=== PATIENT | female | born 1965 | race Caucasian/White ===

== ENCOUNTER 2024-04-10 08:08 | Day surgery (SDC) | payer MEDICAID, OTHER ==
[~2024-04-10] VITALS: Ht 154.9 cm; Wt 95.3 kg
[2024-04-10] MEDS ORDERED: MEPERIDINE 100 MG INJ. 100 MG/ML VIAL ONE (08:17)
[2024-04-10] MEDS ORDERED: MIDAZOLAM HCL 5 MG/5 ML VIAL ONE (08:19)
[2024-04-10 13:01] VITALS: O2SAT 99
[2024-04-10 17:40] VITALS: BP_SYST 113; PULSE 69; RESP 18
== END 2024-04-10 11:40 | disposition home or self-care (01) ==
LOC: SDS 08:08 → SMU 08:11 → SDS 11:40
PROVIDERS: ATTEND Student in an Organized Health Care Education/Training Program
DX: R14.0 Abdominal distension (gaseous) (principal); K29.50 Unspecified chronic gastritis without bleeding; K29.80 Duodenitis without bleeding; I10 Essential (primary) hypertension; Z91.040 Latex allergy status; Z79.899 Other long term (current) drug therapy
CPT/HCPCS: 43239; 99152; 88305; 88312; 88313; G0378; J2250; J2175